=== PATIENT | male | born 2005 | race Caucasian/White ===

== ENCOUNTER 2025-10-06 21:27 | Emergency (ER) | payer MEDICAID, OTHER ==
[~2025-10-06] VITALS: Ht 185.4 cm; Wt 106.4 kg
[2025-10-07 02:25] VITALS: BP 142/79; TEMP 98.1; O2SAT 98
== END 2025-10-07 02:26 | disposition home or self-care (01) ==
LOC: M ED 21:27
DX: S43.101A Unspecified dislocation of right acromioclavicular joint, initial encounter (principal); W01.198A Fall on same level from slipping, tripping and stumbling with subsequent striking against other object, initial encounter; F17.200 Nicotine dependence, unspecified, uncomplicated; F10.10 Alcohol abuse, uncomplicated; Z88.8 Allergy status to other drugs, medicaments and biological substances; Z88.0 Allergy status to penicillin; Y92.9 Unspecified place or not applicable; Y93.89 Activity, other specified; Y99.9 Unspecified external cause status